=== PATIENT | male | born 1975 | race Hispanic/Latino ===

== ENCOUNTER → 2025-02-28 | Day surgery (SDC) | payer BC ==
[~2025-02-28] MED LIST: AMLODIPINE BESY10 MG PO; ANDROGEL75 G1 TOP; CIALIS5 MG PO; GLUCAGON FOR INJ 1 MG VIAL ONE; LIDOCAINE HCL 2% LOCAL INJ 5 ML SDV VIAL INJ ONE; LOSARTAN POTAS100 MG PO; MIDAZOLAM HCL 2 MG/2 ML VIAL ONE; PROPOFOL IV EMULSION 10 MG/ML 20 ML VIAL ONE; SIMVASTATIN40 MG PO
[2025-02-28 09:58] VITALS: TEMP 97.7
[2025-02-28 10:20] VITALS: BP 116/58; PULSE 75; RESP 18; O2SAT 99
[2025-02-28] MEDS: LACTATED RINGER'S 1,000 ML ONE (11:19)
== END | disposition home or self-care (01) ==
LOC: OR 08:45
PROVIDERS: ATTEND Internal Medicine Gastroenterology
DX: Z12.11 Encounter for screening for malignant neoplasm of colon (principal); K63.5 Polyp of colon; K57.30 Diverticulosis of large intestine without perforation or abscess without bleeding; K64.1 Second degree hemorrhoids; K21.9 Gastro-esophageal reflux disease without esophagitis; I10 Essential (primary) hypertension; Z80.0 Family history of malignant neoplasm of digestive organs; Z79.899 Other long term (current) drug therapy
CPT/HCPCS: 45378; J1610; J2003; J2250